=== PATIENT | male | born 1975 | race African-American/Black ===

== ENCOUNTER 2020-03-01 20:18 | Emergency (ER) | payer OTHER ==
[~2020-03-01] VITALS: Ht 180.3 cm; Wt 75.0 kg
[2020-03-01 20:22] VITALS: BP 125/80
[2020-03-01] MEDS ORDERED: KETOROLAC 30MG/ML VIAL IM ONE (20:45)
== END 2020-03-01 22:29 | disposition home or self-care (01) ==
LOC: EDBD 20:18 → ER 20:18
DX: S70.02XA Contusion of left hip, initial encounter (principal); M54.9 Dorsalgia, unspecified; W17.89XA Other fall from one level to another, initial encounter; Y93.9 Activity, unspecified; Y92.9 Unspecified place or not applicable
CPT/HCPCS: 73502; 73552; 73610; 74176; 96372; 99284; J1885